=== PATIENT | male | born 1970 | race Caucasian/White ===

== ENCOUNTER 2023-02-15 07:44 | Day surgery (SDC) | payer BC ==
[~2023-02-15] VITALS: Ht 177.8 cm; Wt 99.8 kg
[~2023-02-15 07:44] MED LIST: LEVOTHYROXINE137 MCG PO
[2023-02-15 07:59] VITALS: BP 121/71
--- NOTE | 2023-02-15 10:06 | NUR ---
02/15/23 Alyssa6 Mariama Montano 1002-PATIENT ARRIVED TO PACU ON 3L NC RR EVEN PLACED ON 2L. PATIENT AWAKE VERY DROWSY DENIES PAIN OR NAUSEA. ABDOMEN SOFT LAYING LEFT LATERAL. IVF INFUSING. PATIENT ENCOURAGED TO REST CLOSES EYES.
[2023-02-15 10:40] VITALS: BP 125/83
--- NOTE | 2023-02-16 06:18 | OR ---
[facility] [address], [place] [address] Signed DATE OF OPERATION: 02/15/2023 SURGEON: Jordana Yen MD PREOPERATIVE DIAGNOSES: 1. Father with rectal cancer age 66. 2. Paternal uncle with colon polyps. 3. Internal hemorrhoids. 4. Personal history of hyperplastic polyps. 5. Chronic intermittent rectal bleeding. POSTOPERATIVE DIAGNOSIS: Moderate internal hemorrhoid column x1. PROCEDURE: Colonoscopy without biopsy. ESTIMATED BLOOD LOSS: None. INDICATIONS: Jett is a 52-year-old gentleman, asked to see me for a followup colonoscopy. I actually diagnosed his father with rectal cancer at the age of 66. He actually lived through the rectal cancer. He just last year from heart disease. Also the paternal uncle has had colonic polyps removed. Jett generally mentions to me his intermittent rectal bleeding on each office visit. He has one dominant internal hemorrhoid column that we attribute this to. We have also removed some hyperplastic polyps for Jett in the past. Otherwise, he has really had no major changes in his health since I have seen him last. In the office, I had given him a pamphlet on colonoscopy. We had reviewed that together. We went back and reviewed his records together. I helped Jett with his initial colonoscopy in 2010 at the age of 40. He always does well with Versed and fentanyl. He came back in 2017 at the age of 45. Again, the internal hemorrhoids and again he did well with 7 mg of Versed and 175 mcg of fentanyl. We kept him on the five year plan. Jett asked me about diverticulosis. We had reviewed his two prior colonoscopies and we have not seen any diverticula. In the office, we had reviewed the test together. He understands there is risk including, but not limited to gas bloating, crampy abdominal pain, bleeding, perforation requiring surgery, and missed diagnosis. He is quite knowledgeable with our bowel prep. He understands the need for IV conscious sedation. He knows he does well with Versed and fentanyl. He understands an adult person has to take him home afterwards. He has Electronically Signed By: JORDANA YEN MD 02/16/23 0618 PATIENT NAME: JETT ABREU OPERATIVE REPORT DATE OF : 66 REPORT #: [id number] PHYSICIAN: JORDANA YEN MD PCP: [facility] SNIDER REPORT IS CONFIDENTIAL AND NOT TO BE RELEASED WITHOUT AUTHORIZATION [facility] [address], [place] [address] Signed expressed understanding and would like to proceed. PROCEDURE NOTE: Jett was taken into our endoscopy suite and placed in the left lateral decubitus position. Once again, he received a total of 7 mg of Versed and 175 mcg of fentanyl. A digital rectal exam was performed. He has no external hemorrhoids. He has excellent sphincter tone. There were no masses palpated. We did not specifically address the prostate today. The adult colonoscope was introduced and advanced under direct visualization of the camera up into the cecum itself. His prep is always good. We could easily see the appendiceal orifice and the ileocecal valve. The scope was then slowly withdrawn. We saw no pathology throughout the entire colon or rectum. Specifically, no diverticula. Upon retroflexion of the scope, again he has some internal hemorrhoids with one dominant column that I am sure is contributing to his intermittent rectal bleeding. After this, the gas was suctioned out and the colonoscope removed. Jett tolerated the procedure quite well. RECOMMENDATIONS: Jett will follow up in 5 years for repeat colonoscopy. He has always done well with Versed and fentanyl in the past. Jordana Yen MD ALB/MODL /[id number] cc: MD Mo Mora PA Copies: JORDANA YEN MD, JOHN PA ~ Electronically Signed By: JORDANA YEN MD 02/16/23 0618 PATIENT NAME: JETT ABREU OPERATIVE REPORT DATE OF : 66 REPORT #: [id number] PHYSICIAN: JORDANA YEN MD PCP: MO SNIDER REPORT IS CONFIDENTIAL AND NOT TO BE RELEASED WITHOUT AUTHORIZATION
== END 2023-02-15 10:50 | disposition home or self-care (01) ==
LOC: OPS 07:44 → DS 07:44 → OPS 09:15
PROVIDERS: ATTEND Colon & Rectal Surgery
PROC: 0DJD8ZZ Inspection of Lower Intestinal Tract, Via Natural or Artificial Opening Endoscopic (ICD-10-PCS; principal; 2023-02-15 09:15)
DX: Z12.11 Encounter for screening for malignant neoplasm of colon (principal); K64.8 Other hemorrhoids; K62.5 Hemorrhage of anus and rectum; Z86.010 Personal history of colon polyps; Z80.0 Family history of malignant neoplasm of digestive organs; E78.5 Hyperlipidemia, unspecified; Z79.890 Hormone replacement therapy
CPT/HCPCS: 99153; G0500; J2250; J3010; J7121